=== PATIENT | female | born 1990 | race African-American/Black ===

== ENCOUNTER 2025-07-10 15:20 | Emergency (ER) | payer SELFPAY ==
[2025-07-10 16:38] LABS: Bacteria/HPF None Seen HPF (None Seen); CAUTI Indications for Culture Alt mental st,lethar; Glucose, Urine (Dipstick) Normal (Negative); Leukocyte Negative Leu/uL (Negative); Pregnancy Test - Urine (BHCG) Negative (Negative); Pregu Control Background? CLEAR/WHITE (CLR/WHITE); Pregu Control Bar Appear? YES (CONTROL BAR); Protein, Urine (Dipstick) Negative (Neg-Trace); RBC/HPF 0-3 HPF (0-3); Specific Gravity, Urine 1.020 (1.002-1.036); WBC/HPF 0-3 HPF (0-3)
[2025-07-10 16:40] LABS: Urine Culture Reflex No No
[2025-07-10] MEDS ORDERED: Ketorolac Tromethamine 30 MG (1 mL) VIAL ONE (16:43)
[2025-07-10] MEDS ORDERED: HYDROcodone/Acetaminophen 10/325 mg Tablet ONE (16:43)
== END 2025-07-10 17:13 | disposition home or self-care (01) ==
LOC: ERS 15:20
DX: S33.5XXA Sprain of ligaments of lumbar spine, initial encounter (principal); X58.XXXA Exposure to other specified factors, initial encounter
CPT/HCPCS: 81001; 81025; 96372; 99283; J1885

== ENCOUNTER 2025-07-31 05:52 | Emergency (ER) | payer SELFPAY ==
[2025-07-31 06:43] LABS: Bacteria/HPF None Seen HPF (None Seen); CAUTI Indications for Culture Dysuria,urgency,freq; Glucose, Urine (Dipstick) Normal (Negative); Leukocyte Negative Leu/uL (Negative); Protein, Urine (Dipstick) Negative (Neg-Trace); RBC/HPF 0-3 HPF (0-3); Specific Gravity, Urine 1.016 (1.002-1.036); WBC/HPF 0-3 HPF (0-3)
[2025-07-31 06:44] LABS: Pregnancy Test - Urine (BHCG) Negative (Negative); Pregu Control Background? CLEAR/WHITE (CLR/WHITE); Pregu Control Bar Appear? YES (CONTROL BAR)
[2025-07-31 06:51] LABS: Urine Culture Reflex No No
== END 2025-07-31 08:22 | disposition home or self-care (01) ==
LOC: ERS 05:52
DX: M51.26 Other intervertebral disc displacement, lumbar region (principal)
CPT/HCPCS: 72131; 81001; 81025; 96372